=== PATIENT | male | born 1935 | race Caucasian/White ===

== ENCOUNTER → 2017-08-26 | Outpatient (CLI) | payer MEDICARE ==
[~2017-08-26] MED LIST: ALEVE220 MG PO; ASPIR-LOW81 MG PO; ATORVASTATIN CA40 MG PO; Aleve PO; Bactrim,Septra DS 80 PO; CLOPIDOGREL75 MG PO; COLACE100 MG PO; Coumadin,Jantoven PO; Feosol PO; Flagyl PO; HYDROCODON-ACE1 EAC7 PO; IRON325 MG PO; KEFLEX500 MG PO; LO-DOSE ASPIRIN81 M1 PO; LOPRESSOR25 MG PO; OMEPRAZOLE40 M1 PO; Percocet 10/325,Endo PO; Senokot S,Pericolace PO; THERAGRAN1 TABLET PO; TYLENOL 8 HOUR650 MG; Vicodin,Norco 5/325 PO; ZOFRAN4 MG PO
== END | disposition home or self-care (01) ==
LOC: CDC 10:25
DX: Z01.810 Encounter for preprocedural cardiovascular examination (principal)
CPT/HCPCS: 93000

== ENCOUNTER 2018-03-09 04:17 | Inpatient (IN) | payer OTHER ==
[~2018-03-09] VITALS: Ht 172.7 cm; Wt 61.1 kg
[2018-03-09 04:48] LABS: HEMATOCRIT 36.8 % (38.0-50.0); HEMOGLOBIN 12.2 G/DL (12.5-16.6); MCH 31.1 PG (29.0-34.0); MCHC 33.2 G/DL (30.0-36.0); MCV 93.9 FL (86-99); PLATELET COUNT 219 K/uL (156-360); RBC DIS.WIDTH-CV 13.7 % (11.8-14.6); RBC DIS.WIDTH-SD 46.2 % (39-53); RED BLOOD COUNT 3.92 M/uL (4.00-5.50); WHITE BLOOD COUNT 10.3 K/uL (4.1-10.2)
[2018-03-09 05:04] LABS: CHLORIDE 115 mEq/L (99-109); POTASSIUM 5.1 mEq/L (3.7-5.4); SODIUM 142 mEq/L (136-147)
[2018-03-09 05:06] LABS: GLUCOSE 126 mg/dL (70-99); TOTAL PROTEIN 6.6 g/dL (6.4-8.3)
[2018-03-09 05:08] LABS: TOTAL BILIRUBIN 0.8 mg/dL (0.0-1.0)
[2018-03-09 05:10] LABS: ALKALINE PHOSPHATASE 101 IU/L (3-129); CREATININE 2.1 mg/dL (0.6-1.3); GFR ESTIMATE (CALCULATED) 32 mL/min/ (58.99-99999)
[2018-03-09 05:11] LABS: UREA NITROGEN (BUN) 46 mg/dL (9-23)
[2018-03-09 05:12] LABS: AST (GOT) 33 IU/L (2-34)
[2018-03-09 05:13] LABS: ALT (GPT) 22 IU/L (3-49); LIPASE 39 U/L (1.0-51.0)
[2018-03-09 06:42] LABS: APPEARANCE CLEAR ((CLEAR)); BILIRUBIN NEGATIVE; BLOOD NEGATIVE; COLOR YELLOW ((YELLOW)); GLUCOSE (STRIP) NEGATIVE; KETONES NEGATIVE; LEUKOCYTES SMALL; NITRITE NEGATIVE; PROTEIN (STRIP) NEGATIVE; SPECIFIC GRAVITY 1.016 (1.000-1.030); UROBILINOGEN 0.2 MG/DL (0.2-1.0)
[2018-03-09 06:49] LABS: BACTERIA RARE /HPF; EPITHELIAL CELLS RARE /HPF; MUCUS TRACE /LPF; RED BLOOD CELLS 0-5 /HPF (0-5); UCUL ADDED? YES
[2018-03-09] MEDS ORDERED: TYLENOL REGULA325 MG PO (11:38)
[2018-03-09 12:55] VITALS: BP 133/67
[2018-03-09 17:18] VITALS: BP 129/69
[2018-03-09 19:00] VITALS: BP 125/68
[2018-03-09 23:50] VITALS: BP 99/60
[2018-03-10 04:30] VITALS: BP 129/63
[2018-03-10 05:48] LABS: HEMATOCRIT 32.2 % (38.0-50.0); MCH 30.1 PG (29.0-34.0); MCHC 31.7 G/DL (30.0-36.0); PLATELET COUNT 185 K/uL (156-360); RBC DIS.WIDTH-CV 13.3 % (11.8-14.6); RBC DIS.WIDTH-SD 46.2 % (39-53); RED BLOOD COUNT 3.39 M/uL (4.00-5.50); WHITE BLOOD COUNT 6.3 K/uL (4.1-10.2)
[2018-03-10 05:49] LABS: HEMOGLOBIN 10.2 G/DL (12.5-16.6)
[2018-03-10 06:06] LABS: CHLORIDE 112 MEQ/L (99-109); CREATININE 1.9 MG/DL (0.6-1.3); GFR ESTIMATE (CALCULATED) 36 mL/min/ (58.99-99999); GLUCOSE 95 mg/dL (70-99); POTASSIUM 4.7 MEQ/L (3.7-5.4); SODIUM 140 MEQ/L (136-147); UREA NITROGEN (BUN) 39 mg/dL (9-23)
[2018-03-10 07:00] VITALS: BP 99/55
[2018-03-10 11:10] VITALS: BP 89/57
[2018-03-10 19:30] VITALS: BP 100/56
[2018-03-10 23:10] VITALS: BP 99/57
[2018-03-11] VITALS (8 sets, daily range): BP systolic 106–125; BP diastolic 55–66
[2018-03-11 08:23] LABS: BASOPHIL (%) 0.2 % (0-1); EOSINOPHIL (%) 1.9 % (0-5); EOSINOPHIL COUNT 0.1 K/uL (0-0.3); HEMOGLOBIN 9.9 G/DL (12.5-16.6); IMMATURE GRANULOCYTE (%) 0.3 % (0.0-0.7); LYMPHOCYTE (%) 12.6 % (15-42); LYMPHOCYTE COUNT 0.8 K/uL (1.0-2.8); MCH 29.9 PG (29.0-34.0); MCHC 31.9 G/DL (30.0-36.0); MCV 93.7 FL (86-99); MONOCYTE (%) 8.7 % (3-12); MONOCYTE COUNT 0.6 K/uL (0-0.8); NEUTROPHIL (%) 76.3 % (45-76); NEUTROPHIL COUNT 4.9 K/uL (1.8-6.4); PLATELET COUNT 171 K/uL (156-360); RBC DIS.WIDTH-CV 13.2 % (11.8-14.6); RBC DIS.WIDTH-SD 45.2 % (39-53); RED BLOOD COUNT 3.31 M/uL (4.00-5.50); WHITE BLOOD COUNT 6.4 K/uL (4.1-10.2)
[2018-03-11 08:54] LABS: CHLORIDE 109 MEQ/L (99-109); CREATININE 1.8 MG/DL (0.6-1.3); GFR ESTIMATE (CALCULATED) 38 mL/min/ (58.99-99999); POTASSIUM 4.3 MEQ/L (3.7-5.4); SODIUM 141 MEQ/L (136-147); UREA NITROGEN (BUN) 40 mg/dL (9-23)
[2018-03-11 08:55] LABS: GLUCOSE 64 mg/dL (70-99)
[2018-03-12 03:42] VITALS: BP 117/66
[2018-03-12 05:48] LABS: BASOPHIL (%) 0.2 % (0-1); EOSINOPHIL (%) 2.4 % (0-5); EOSINOPHIL COUNT 0.1 K/uL (0-0.3); HEMATOCRIT 31.8 % (38.0-50.0); HEMOGLOBIN 10.2 G/DL (12.5-16.6); IMMATURE GRANULOCYTE (%) 0.3 % (0.0-0.7); LYMPHOCYTE (%) 13.7 % (15-42); LYMPHOCYTE COUNT 0.8 K/uL (1.0-2.8); MCH 29.7 PG (29.0-34.0); MCHC 32.1 G/DL (30.0-36.0); MCV 92.7 FL (86-99); MONOCYTE COUNT 0.5 K/uL (0-0.8); NEUTROPHIL (%) 74.4 % (45-76); NEUTROPHIL COUNT 4.3 K/uL (1.8-6.4); PLATELET COUNT 172 K/uL (156-360); RBC DIS.WIDTH-CV 12.8 % (11.8-14.6); RBC DIS.WIDTH-SD 43.6 % (39-53); RED BLOOD COUNT 3.43 M/uL (4.00-5.50); WHITE BLOOD COUNT 5.8 K/uL (4.1-10.2)
[2018-03-12 06:16] LABS: CHLORIDE 108 MEQ/L (99-109); CREATININE 1.6 MG/DL (0.6-1.3); GFR ESTIMATE (CALCULATED) 44 mL/min/ (58.99-99999); SODIUM 139 MEQ/L (136-147); UREA NITROGEN (BUN) 30 mg/dL (9-23)
[2018-03-12 06:17] LABS: GLUCOSE 119 mg/dL (70-99)
[2018-03-12 08:10] VITALS: BP 109/58
[2018-03-12] MEDS ORDERED: ULTRAM50 MG PO (10:08)
[2018-03-12] MEDS ORDERED: COLACE100 MG PO (10:08)
== END 2018-03-12 14:20 | disposition home health service (06) | DRG 330 ==
LOC: EME 04:17 → 3EAST 11:19 → EDOF 11:19 → ENRESERV 11:22 → 3EAST 12:38 → ENRESERV 16:03 → CANRESERV 16:03 → ENRESERV 16:47 → 4EAST 17:17 → ENRESERV 03-11 10:17 → 3EAST 03-11 12:45
PROVIDERS: Physician Assistant; Surgery
DX: K41.31 Unilateral femoral hernia, with obstruction, without gangrene, recurrent (principal); R64 Cachexia; Z96.641 Presence of right artificial hip joint; E46 Unspecified protein-calorie malnutrition; Z68.1 Body mass index [BMI] 19.9 or less, adult; D63.1 Anemia in chronic kidney disease; N18.9 Chronic kidney disease, unspecified
CPT/HCPCS: 74176; 76882; 80048; 80053; 81003; 83690; 85025; 85027; 87086; 88307; 93005; 99281; 99285; J2250; J2405; J3010; J7030; J7120; S0020; S0074